=== PATIENT | male | born 1990 | race Caucasian/White ===

== ENCOUNTER 2025-04-16 05:48 | Observation (INO) | payer OTHER, SELFPAY ==
[2025-04-16] VITALS (17 sets, daily range): BP systolic 113–157; BP diastolic 65–98; PULSE 46–79; RESP 16–18; TEMP 36.3–37; O2SAT 93–99; BMI 36.6
--- NOTE | 2025-04-16 05:57 | CT_ITS ---
FINAL REPORT TECHNIQUE: After the administration of intravenous contrast, axial images were obtained through the abdomen and pelvis by computed tomography. The study was performed with techniques to keep radiation dose as low as reasonably achievable, (ALARA). Individual dose reduction techniques using automated exposure control or adjustment of mA and/or kV according to the patient's size were employed. CLINICAL HISTORY: epigastric/RUQ pain COMPARISON: None FINDINGS: Abdomen: The lung bases are clear. There is extensive fatty infiltration of the liver present. The gallbladder is present. The spleen, pancreas, adrenals and kidneys appear unremarkable. The aorta is normal in caliber. There is no free fluid or adenopathy. There are dilated loops of proximal small bowel, which measure up to 3.5 cm in diameter, some of which demonstrate mild mucosal thickening. The distal small bowel is normal in caliber. Pelvis: The appendix is normal in appearance. The urinary bladder is unremarkable. There is no free fluid or adenopathy. IMPRESSION: Dilated loops of proximal small bowel, as described above, some of which demonstrate mild mucosal thickening. This likely is secondary to partial small bowel obstruction, although the exact transition point is not identified. Extensive fatty infiltration of the liver. Reviewed, Interpreted and Dictated by John Esposito MD Transcribed by Marycruz Grant Authenticated and [facility]
--- NOTE | 2025-04-16 06:00 | ED_ITS ---
Discharge Plan Disposition Patient Disposition: Admitted Referrals Follow up/Referrals: Robin Hanson [Primary Care Provider, Medical] - See instructions Clinical Impressions Clinical Impression: Abdominal pain Qualifiers: Abdominal location: upper abdomen, unspecified Qualified Code(s): R10.10 - Upper abdominal pain, unspecified Instructions Patient Instructions: DI for Acute Abdominal Pain Print Language Print Language: Macedonian Discharge ED Provider: Manuel Gay General Adult HPI <Manuel Gay MD - Last Filed: 04/16/25 07:12> General Chief complaint: Abdominal Pain Stated complaint: abd pain radiating to R shoulder Time Seen by Provider: 04/16/25 05:50 History of Present Illness HPI narrative: 34-year-old male with history of hypertension presents for abdominal pain. He reports yesterday around 11 PM. No inciting factors. He reports that it is severe, comes and goes in intensity, primarily right upper quadrant but also radiating to the left side of bilateral flanks as well as the right shoulder. He reports nausea and 1 episode of vomiting. Denies history of surgery. Related Data Allergies Allergy/AdvReac Type Severity Reaction Status Date / Time No Known Allergies Allergy Verified 08/25/24 19:47 PFSH <Manuel Gay MD - Last Filed: 04/16/25 07:12> PFS Disclaimer: The information contained in this section may have been updated after the patient was seen, as this information can be updated by other users. Social History (Updated 04/16/25 @ 07:12 by Manuel Gay MD) Smoking Status: Smoker, status unknown alcohol intake: current current occupational status: employed Travel in the last 8 weeks?: None Have you lived/traveled outside US in past 30 days?: No Contact w/someone who lives/traveled outside US past 30 days?: No Exposure to someone with infectious disease in past 14 days?: No Do you have a fever (greater than 100.4 F or 38 C)?: No Have you tested positive for COVID-19?: No Exposed to someone with COVID-19 in past 14 days?: No Do you have a sore throat?: No Do you have a cough?: No Do you have any weakness?: No Do you have any diarrhea?: No Are you experiencing any unusual bleeding?: No Do you have any muscle aches/pain?: Yes Do you have any abdominal pain?: Yes Are you experiencing loss of taste or smell?: No <Manuel Gay MD - Last Filed: 04/16/25 07:12> ROS Obtained: Yes All systems reviewed & no additional complaints except as documented Physical Exam <Manuel Gay MD - Last Filed: 04/16/25 07:12> General General appearance: alert and in no apparent distress Head Head exam: atraumatic and normocephalic Eye Eye exam: Present normal appearance, PERRL and EOMI ENT ENT exam: Present normal oropharynx and normal external ear exam Neck Neck exam: Present normal inspection and full ROM Chest Chest inspection: Present normal inspection and symmetric chest wall rise; Absent tenderness Respiratory Respiratory exam: Present normal lung sounds bilaterally; Absent respiratory distress Cardiovascular Cardiovascular exam: Present regular rate and normal rhythm Abdominal Exam Abdominal exam: Present soft and tenderness (Right upper quadrant, epigastric); Absent distention or guarding Extremities Exam Extremities exam: Present normal inspection; Absent edema or joint swelling Back Exam Back exam: Present normal inspection; Absent tenderness Neurological Exam Neurological exam: Present alert and oriented X3; Absent motor sensory deficit Psychiatric Psychiatric exam: Present normal affect and normal mood Skin Skin exam: Present warm, dry and normal color Lymphatic Lymphatic Findings: no adenopathy Medical Decision Making <Manuel Gay MD - Last Filed: 04/16/25 07:12> Medical Records Medical records reviewed: Yes I reviewed the patient's medical records. Screening: Per USPSTF and CDC recommendations, given the prevalence of disease in our region, it is our hospital?s policy to screen for HIV and viral Hepatitis for all patients aged 18 and over and those with ongoing risk factors. Simon Inquiry Pt receiving controlled substance: No Simon was queried for this patient: No Vital Signs: 04/16/25 05:57 04/16/25 06:01 04/16/25 06:37 Temperature 97.3 F L Temperature Source Oral Pulse Rate 69 79 Pulse Rate [Left] 74 Respiratory Rate 16 Blood Pressure 130/82 154/84 H Blood Pressure [Right Arm] 157/98 H Blood Pressure Mean Blood Pressure Mean [Right Arm] 117 Blood Pressure Source Blood Pressure Source [Right Arm] Automatic Cuff Blood Pressure Position 02 Sat by Pulse Oximetry 97 95 99 Oxygen Delivery Method Room Air Room Air Room Air 04/16/25 07:00 04/16/25 07:01 04/16/25 07:30 Temperature Temperature Source Pulse Rate 67 55 L 55 L Pulse Rate [Left] Respiratory Rate 16 Blood Pressure 154/84 H 123/69 119/66 Blood Pressure [Right Arm] Blood Pressure Mean 83 Blood Pressure Mean [Right Arm] Blood Pressure Source Automatic Cuff Blood Pressure Source [Right Arm] Blood Pressure Position 02 Sat by Pulse Oximetry 97 95 96 Oxygen Delivery Method Room Air Room Air Room Air 04/16/25 07:54 04/16/25 08:01 04/16/25 08:31 Temperature Temperature Source Pulse Rate 63 58 L 56 L Pulse Rate [Left] Respiratory Rate 17 Blood Pressure 119/66 114/65 116/70 Blood Pressure [Right Arm] Blood Pressure Mean 80 Blood Pressure Mean [Right Arm] Blood Pressure Source Automatic Cuff Blood Pressure Source [Right Arm] Blood Pressure Position Supine 02 Sat by Pulse Oximetry 98 96 97 Oxygen Delivery Method Room Air Room Air Room Air 04/16/25 09:01 Temperature Temperature Source Pulse Rate 56 L Pulse Rate [Left] Respiratory Rate Blood Pressure 114/65 Blood Pressure [Right Arm] Blood Pressure Mean Blood Pressure Mean [Right Arm] Blood Pressure Source Blood Pressure Source [Right Arm] Blood Pressure Position 02 Sat by Pulse Oximetry 94 L Oxygen Delivery Method Room Air Lab Data Lab results reviewed: Yes I reviewed the patient's lab results. Lab Results 04/16/25 06:00: WBC 13.0 H, RBC 5.42, Hgb 15.9, Hct 46.1, MCV 85.1, MCH 29.3, MCHC 34.5, RDW 12.7, Plt Count 235, MPV 11.1 H, Neut % (Auto) 73.9, Lymph % (Auto) 17.8, [place] % (Auto) 6.9, Eos % (Auto) 0.9, Baso % (Auto) 0.3, Neut # (Auto) 9.6 H, Lymph # (Auto) 2.3, [place] # (Auto) 0.9, Eos # (Auto) 0.1, Baso # (Auto) 0.0, Sodium 140, Potassium 4.2, Chloride 101, Carbon Dioxide 30, Anion Gap 13.2, BUN 18, Creatinine 1.00, Estimated Creat Clear 177, Estimated GFR 85, Est GFR ( Amer) 102, Glucose 108 H, Calcium 9.7, Total Bilirubin 1.6 H, A ST 103 H, ALT 150 H, Alkaline Phosphatase 77, Total Protein 8.6 H, Albumin 5.1 H , Globulin 3.5 H, Albumin/Globulin Ratio 1.5, Lipase 65 04/16/25 06:00 04/16/25 06:00 Orders (Tests/Meds): ED MEDICATIONS Discontinued Medications Generic Name Dose Route Start Last Admin Trade Name Freq PRN Reason Stop Dose Admin Acetaminophen 1,000 mg 04/16/25 05:56 04/16/25 06:06 Acetaminophen 500mg Tab PO 04/16/25 05:57 1,000 mg ONCE ONE Administration Belladonna Alkaloids 60 ml 04/16/25 06:00 04/16/25 06:06 Belladonna Alkaloids 60 Ml Ml PO 04/16/25 06:01 60 ml ONCE ONE Administration Hydromorphone HCl 1 mg 04/16/25 06:23 04/16/25 06:28 Hydromorphone 2mg/Ml Syringe IV 04/16/25 06:24 1 mg ONCE ONE Administration Iopamidol 75 ml 04/16/25 06:39 04/16/25 06:40 Iopamidol-370 (76%);100ml Bottle IV 04/16/25 06:40 75 ml ONCE ONE Administration Ketorolac Tromethamine 30 mg 04/16/25 05:56 04/16/25 06:06 Ketorolac 30mg/Ml Vial IV 04/16/25 05:57 30 mg ONCE ONE Administration Morphine Sulfate 4 mg 04/16/25 05:56 04/16/25 06:06 Morphine 4mg/Ml Syringe IV 04/16/25 05:57 4 mg ONCE ONE Administration Ondansetron HCl 4 mg 04/16/25 05:56 04/16/25 06:06 Ondansetron 4mg/2ml Vial IV 04/16/25 05:57 4 mg ONCE ONE Administration Sodium Chloride 10 ml 04/16/25 06:39 04/16/25 06:40 Sodium Chloride 0.9% 10ml Syr (Rad Only) IV 04/16/25 06:40 10 ml ONCE ONE Administration ORDERS Category Date Time Status CT abdomen pelvis w con Stat Cat Scan 04/16/25 05:57 Completed CBC w/Auto Diff [Complete Blood Count Auto Diff] Stat Lab 04/16/25 06:00 Completed CMP [Comprehensive Metabolic Panel] Stat Lab 04/16/25 06:00 Completed Lipase Stat Lab 04/16/25 06:00 Completed Medical Decision Narrative: 34-year-old male with history of hypertension presents for right upper quadrant, epigastric and bilateral flank pain starting last night at 11 PM. History was obtained via interactive discussion with patient. On arrival, patient is [afebrile, hemodynamically stable, satting appropriately, alert, oriented x4, GCS 15], moving all extremities spontaneously. Full physical exam performed and significant for right upper quadrant/epigastric tenderness Differential includes but is not limited to cholecystitis, pancreatitis, choledocholithiasis, cholangitis, gastroenteritis. Patient was given Tylenol Toradol Zofran morphine for symptomatic management and correction of underlying abnormalities. Workup initiated including CBC CMP lipase CT abdomen pelvis with IV contrast. On re-evaluation, patient [remains afebrile, HD stable.] Laboratory workup independently interpreted by me and significant for mild leukocytosis with white count of 13, mildly elevated bilirubin at 1.6, mildly elevated LFTs, normal lipase. Imaging independently interpreted by me and significant for dilated proximal loops of small bowel without an obvious distal obstruction. Gallbladder shows no obvious stones or wall thickening or pericholecystic fluid. See radiology read for full review of final results. Patient care signed out to oncoming physician pending CT read. <Marquis Rodriguez MD - Last Filed: 04/16/25 09:23> Vital Signs: 04/16/25 05:57 04/16/25 06:01 04/16/25 06:37 Temperature 97.3 F L Temperature Source Oral Pulse Rate 69 79 Pulse Rate [Left] 74 Respiratory Rate 16 Blood Pressure 130/82 154/84 H Blood Pressure [Right Arm] 157/98 H Blood Pressure Mean Blood Pressure Mean [Right Arm] 117 Blood Pressure Source Blood Pressure Source [Right Arm] Automatic Cuff Blood Pressure Position 02 Sat by Pulse Oximetry 97 95 99 Oxygen Delivery Method Room Air Room Air Room Air 04/16/25 07:00 04/16/25 07:01 04/16/25 07:30 Temperature Temperature Source Pulse Rate 67 55 L 55 L Pulse Rate [Left] Respiratory Rate 16 Blood Pressure 154/84 H 123/69 119/66 Blood Pressure [Right Arm] Blood Pressure Mean 83 Blood Pressure Mean [Right Arm] Blood Pressure Source Automatic Cuff Blood Pressure Source [Right Arm] Blood Pressure Position 02 Sat by Pulse Oximetry 97 95 96 Oxygen Delivery Method Room Air Room Air Room Air 04/16/25 07:54 04/16/25 08:01 04/16/25 08:31 Temperature Temperature Source Pulse Rate 63 58 L 56 L Pulse Rate [Left] Respiratory Rate 17 Blood Pressure 119/66 114/65 116/70 Blood Pressure [Right Arm] Blood Pressure Mean 80 Blood Pressure Mean [Right Arm] Blood Pressure Source Automatic Cuff Blood Pressure Source [Right Arm] Blood Pressure Position Supine 02 Sat by Pulse Oximetry 98 96 97 Oxygen Delivery Method Room Air Room Air Room Air 04/16/25 09:01 Temperature Temperature Source Pulse Rate 56 L Pulse Rate [Left] Respiratory Rate Blood Pressure 114/65 Blood Pressure [Right Arm] Blood Pressure Mean Blood Pressure Mean [Right Arm] Blood Pressure Source Blood Pressure Source [Right Arm] Blood Pressure Position 02 Sat by Pulse Oximetry 94 L Oxygen Delivery Method Room Air Lab Data Lab Results 04/16/25 06:00: WBC 13.0 H, RBC 5.42, Hgb 15.9, Hct 46.1, MCV 85.1, MCH 29.3, MCHC 34.5, RDW 12.7, Plt Count 235, MPV 11.1 H, Neut % (Auto) 73.9, Lymph % (Auto) 17.8, [place] % (Auto) 6.9, Eos % (Auto) 0.9, Baso % (Auto) 0.3, Neut # (Auto) 9.6 H, Lymph # (Auto) 2.3, [place] # (Auto) 0.9, Eos # (Auto) 0.1, Baso # (Auto) 0.0, Sodium 140, Potassium 4.2, Chloride 101, Carbon Dioxide 30, Anion Gap 13.2, BUN 18, Creatinine 1.00, Estimated Creat Clear 177, Estimated GFR 85, Est GFR ( Amer) 102, Glucose 108 H, Calcium 9.7, Total Bilirubin 1.6 H, A ST 103 H, ALT 150 H, Alkaline Phosphatase 77, Total Protein 8.6 H, Albumin 5.1 H , Globulin 3.5 H, Albumin/Globulin Ratio 1.5, Lipase 65 Orders (Tests/Meds): ED MEDICATIONS Discontinued Medications Generic Name Dose Route Start Last Admin Trade Name Freq PRN Reason Stop Dose Admin Acetaminophen 1,000 mg 04/16/25 05:56 04/16/25 06:06 Acetaminophen 500mg Tab PO 04/16/25 05:57 1,000 mg ONCE ONE Administration Belladonna Alkaloids 60 ml 04/16/25 06:00 04/16/25 06:06 Belladonna Alkaloids 60 Ml Ml PO 04/16/25 06:01 60 ml ONCE ONE Administration Hydromorphone HCl 1 mg 04/16/25 06:23 04/16/25 06:28 Hydromorphone 2mg/Ml Syringe IV 04/16/25 06:24 1 mg ONCE ONE Administration Iopamidol 75 ml 04/16/25 06:39 04/16/25 06:40 Iopamidol-370 (76%);100ml Bottle IV 04/16/25 06:40 75 ml ONCE ONE Administration Ketorolac Tromethamine 30 mg 04/16/25 05:56 04/16/25 06:06 Ketorolac 30mg/Ml Vial IV 04/16/25 05:57 30 mg ONCE ONE Administration Morphine Sulfate 4 mg 04/16/25 05:56 04/16/25 06:06 Morphine 4mg/Ml Syringe IV 04/16/25 05:57 4 mg ONCE ONE Administration Ondansetron HCl 4 mg 04/16/25 05:56 04/16/25 06:06 Ondansetron 4mg/2ml Vial IV 04/16/25 05:57 4 mg ONCE ONE Administration Sodium Chloride 10 ml 04/16/25 06:39 04/16/25 06:40 Sodium Chloride 0.9% 10ml Syr (Rad Only) IV 04/16/25 06:40 10 ml ONCE ONE Administration ORDERS Category Date Time Status CT abdomen pelvis w con Stat Cat Scan 04/16/25 05:57 Completed CBC w/Auto Diff [Complete Blood Count Auto Diff] Stat Lab 04/16/25 06:00 Completed CMP [Comprehensive Metabolic Panel] Stat Lab 04/16/25 06:00 Completed Lipase Stat Lab 04/16/25 06:00 Completed Medical Decision Narrative: 34-year-old male with history of hypertension presents for right upper quadrant, epigastric and bilateral flank pain starting last night at 11 PM. History was obtained via interactive discussion with patient. On arrival, patient is [afebrile, hemodynamically stable, satting appropriately, alert, oriented x4, GCS 15], moving all extremities spontaneously. Full physical exam performed and significant for right upper quadrant/epigastric tenderness Differential includes but is not limited to cholecystitis, pancreatitis, choledocholithiasis, cholangitis, gastroenteritis. Patient was given Tylenol Toradol Zofran morphine for symptomatic management and correction of underlying abnormalities. Workup initiated including CBC CMP lipase CT abdomen pelvis with IV contrast. On re-evaluation, patient [remains afebrile, HD stable.] Laboratory workup independently interpreted by me and significant for mild leukocytosis with white count of 13, mildly elevated bilirubin at 1.6, mildly elevated LFTs, normal lipase. Imaging independently interpreted by me and significant for dilated proximal loops of small bowel without an obvious distal obstruction. Gallbladder shows no obvious stones or wall thickening or pericholecystic fluid. See radiology read for full review of final results. Patient care signed out to oncoming physician pending CT read. Marquis Rodriguez: Upon assumption of care patient is hemodynamically stable. 34-year-old male no past abdominal surgical history epigastric abdominal pain. Hematologic labs reviewed by me mild leukocytosis 13 no critical electrolyte abnormality or JANE. Mild elevated bilirubin and transaminitis without elevated lipase, patient states these are always elevated. CT imaging informally reviewed by me there appears to be decompressed bowel without obvious transition point. CT abdomen pelvis consistent with partial small bowel obstruction without obvious transition point identified with extensive fatty infiltration of the liver which explains his transaminitis that he is aware of. The case discussed with general surgery Dr. Perez regarding management and he agrees that supportive care and observation is warranted. The case was discussed hospital medicine regarding management they will admit the patient their service for continued evaluation at this time. Procedures <Manuel Gay MD - Last Filed: 04/16/25 07:12> Risk/Benefits of Procedure(s) Were Explained: Yes Critical Care <Manuel Gay MD - Last Filed: 04/16/25 07:12> Critical Care Time Critical Care Time: No
[2025-04-16] MEDS: ACETAMINOPHEN 500MG TAB 1000 MG PO (06:06)
[2025-04-16] MEDS: MORPHINE 4MG/ML SYRINGE 4 MG IV (06:06)
[2025-04-16] MEDS: BELLADONNA ALKALOIDS 60 ML ML PO (06:06)
[2025-04-16] MEDS: KETOROLAC 30MG/ML VIAL 30 MG IV (06:06)
[2025-04-16] MEDS: ONDANSETRON 4MG/2ML VIAL 4 MG IV (06:06)
[2025-04-16 06:10] LABS: Basophils % 0.3 % (0.1-2.0); Eosinophils # 0.1 Kmm3 (0.0-0.4); Eosinophils % 0.9 % (0.1-12.0); Hematocrit 46.1 % (42.0-52.0); Hemoglobin 15.9 g/dL (14.1-18.0); Immature Granulocytes # 0.03 10^3uL; Immature Granulocytes % 0.2 %; Lymphocytes # 2.3 K/mm3 (0.7-4.5); Lymphocytes % 17.8 % (10-50); Mean Corpuscular HGB Conc 34.5 g/dL (31.8-35.4); Mean Corpuscular Hemoglobin 29.3 pg (27.0-31.2); Mean Corpuscular Volume 85.1 fl (80-94); Mean Platelet Volume 11.1 fl (7.4-10.4); Monocytes # 0.9 K/mm3 (0.1-1.0); Monocytes % 6.9 % (1.7-9.3); Neutrophils # 9.6 K/mm3 (1.8-7.8); Neutrophils % 73.9 % (37.0-80.0); Nucleated Red Blood Cells # 0 10^3/uL; Nucleated Red Blood Cells % 0 %; Platelet Count 235 K/mm3 (142-424); Red Blood Count 5.42 M/mm3 (4.60-6.20); Red Cell Distribution Width 12.7 % (11.5-17.5)
[2025-04-16] MEDS: HYDROMORPHONE 2MG/ML SYRINGE 1 MG IV (06:28)
[2025-04-16 06:29] LABS: Alanine Aminotransferase 150 U/L (12-78); Albumin Level 5.1 g/dl (3.5-5.0); Albumin/Globulin Ratio 1.5 (1.1-1.8); Alkaline Phosphatase 77 U/L (38-126); Anion Gap 13.2 mEq/L (5-15); Aspartate Amino Transferase 103 U/L (17-59); Bilirubin,Total 1.6 mg/dl (0.2-1.3); Blood Urea Nitrogen 18 mg/dl (9-20); Calcium 9.7 mg/dl (8.4-10.2); Carbon Dioxide 30 mmol/L (22.0-30.0); Chloride 101 mmol/L (98-107); Creatinine Clearance Estimated 177 mL/min (50-200); Estimated Glomerular Filt Rate 85 ml/min (>60); GFR (African American) 102 ML/MIN (>60); Globulin 3.5 g/dL (1.3-3.2); Glucose 108 mg/dl (74-100); Lipase 65 U/L (23-300); Potassium 4.2 mmoL/L (3.5-5.1); Sodium 140 mmol/L (136-145); Total Protein,Serum 8.6 g/dl (6.3-8.2)
[2025-04-16] MEDS: SODIUM CHLORIDE 0.9% 10ML SYR (RAD ONLY) 10 ML IV (06:40)
[2025-04-16] MEDS: IOPAMIDOL-370 (76%);100ML BOTTLE 75 ML IV (06:40)
--- NOTE | 2025-04-16 07:50 | PC.NURSE ---
call made to rad for update on pt scan, trade manager states scan is locked and being read .
--- NOTE | 2025-04-16 07:50 | PC.NURSE ---
Rounded on pt. Pt reports that the pain is under control. pt states he doesn't need anything at this time. Call light in reach. Vital signs stable.
--- NOTE | 2025-04-16 08:03 | PC.NURSE ---
at updating pt about ct scan results
--- NOTE | 2025-04-16 08:09 | PC.NURSE ---
had the sock knitting machine operator page Dr Perez per Dr Rodriguez about this pt
--- NOTE | 2025-04-16 09:24 | PC.NURSE ---
supervisor hospitality [facility] notified of bed admission
--- NOTE | 2025-04-16 09:25 | EXP.HP ---
History of Present Illness *Admission Date: 04/16/25 *Reason for visit:: abdominal pain [facility] Disclaimer: The information contained in this section may have been updated after the patient was seen, as this information can be updated by other users. Social History (Updated 04/16/25 @ 11:26 by Elisa Bejarano RN) Smoking Status: Smoker, status unknown alcohol intake: current current occupational status: employed Travel in the last 8 weeks?: None Have you lived/traveled outside US in past 30 days?: No Contact w/someone who lives/traveled outside US past 30 days?: No Exposure to someone with infectious disease in past 14 days?: No Do you have a fever (greater than 100.4 F or 38 C)?: No Have you tested positive for COVID-19?: No Exposed to someone with COVID-19 in past 14 days?: No Do you have a sore throat?: No Do you have a cough?: No Do you have any weakness?: No Do you have any diarrhea?: No Are you experiencing any unusual bleeding?: No Do you have any muscle aches/pain?: Yes Do you have any abdominal pain?: Yes Are you experiencing loss of taste or smell?: No Meds Home Medications and Allergies Home Medications ?Medication ?Instructions ?Recorded ?Confirmed ?Type alprazolam 1 mg tablet 1 mg PO DAILY PRN Anxiety 04/16/25 04/16/25 History nebivolol 2.5 mg tablet 2.5 mg PO DAILY 04/16/25 04/16/25 History omeprazole 20 mg capsule,delayed 20 mg PO DAILY 04/16/25 04/16/25 History release New Prescriptions to Start Prescriptions: Allergies Allergy/AdvReac Type Severity Reaction Status Date / Time No Known Allergies Allergy Verified 08/25/24 19:47 Exam Data for Last 24 hours Vital signs and Labs for Last 24 Hours: Temp Pulse Resp BP Pulse Ox O2 Del Method 97.3 F L 56 L 17 114/65 94 L Room Air 04/16/25 05:57 04/16/25 09:01 04/16/25 07:54 04/16/25 09:01 04/16/25 09:01 04/16/25 09:01 Laboratory Results - last 24 hr 04/16/25 06:00: WBC 13.0 H, RBC 5.42, Hgb 15.9, Hct 46.1, MCV 85.1, MCH 29.3, MCHC 34.5, RDW 12.7, Plt Count 235, MPV 11.1 H, Neut % (Auto) 73.9, Lymph % (Auto) 17.8, [place] % (Auto) 6.9, Eos % (Auto) 0.9, Baso % (Auto) 0.3, Neut # (Auto) 9.6 H, Lymph # (Auto) 2.3, [place] # (Auto) 0.9, Eos # (Auto) 0.1, Baso # (Auto) 0.0, Sodium 140, Potassium 4.2, Chloride 101, Carbon Dioxide 30, Anion Gap 13.2, BUN 18, Creatinine 1.00, Estimated Creat Clear 177, Estimated GFR 85, Est GFR ( Amer) 102, Glucose 108 H, Calcium 9.7, Total Bilirubin 1.6 H, AST 103 H, ALT 150 H, Alkaline Phosphatase 77, Total Protein 8.6 H, Albumin 5.1 H, Globulin 3.5 H, Albumin/Globulin Ratio 1.5, Lipase 65 I & O for Last 24 hours: Intake & Output 04/13/25 04/14/25 04/15/25 04/16/25 23:59 23:59 23:59 23:59 Weight 122.47 kg Assessment and Plan *Assessment and plan (1) Abdominal pain: Status: Acute Qualifiers: Abdominal location: upper abdomen, unspecified Qualified Code(s): R10.10 - Upper abdominal pain, unspecified Category: Medical Code(s): R10.9 - Unspecified abdominal pain (2) SBO (small bowel obstruction): Status: Acute Category: Medical Code(s): K56.609 - Unspecified intestinal obstruction, unspecified as to partial versus complete obstruction (3) Hypertension: Status: Acute Category: Medical Code(s): I10 - Essential (primary) hypertension (4) Anxiety: Status: Acute Category: Medical Code(s): F41.9 - Anxiety disorder, unspecified (5) Obesity: Status: Acute Category: Medical Code(s): E66.9 - Obesity, unspecified Plan Abdominal pain Partial SBO -CT obtained in the ED, suspicious for partial SBO with gradual transition point. No clear delineation. Having abdominal pain worse in the right lower abdomen. -N.p.o., surgery consulted to assist with management. Continue conservative management at this time. -Zofran 4 mg as needed every 6 hours for nausea -Monitor for improvement in bowel function. If starts passing gas or has a bowel movement, will advance diet -
--- NOTE | 2025-04-16 09:53 | HMH.PHAINT1 ---
Pharmacy Intervention Comments: MEDICATION RECONCILIATION COMPLETED ON PATIENT USING EXTERNAL FILL HISTORY FROM PHARMACY. -JARRETT SANTIAGO, DONOVAND
[2025-04-16 10:22] LABS: HIV Combo NEGATIVE (Negative)
[2025-04-16 10:31] LABS: Hepatitis C Ab Qual. W/ RFX NEGATIVE (Negative)
--- NOTE | 2025-04-16 11:07 | PC.NURSE ---
I called report to Elisa ELY
[2025-04-16] MEDS: LACTATED RINGERS 1000ML 1,000 ML 75 ML IV (11:58)
--- NOTE | 2025-04-16 12:13 | EXP.SURG.CON ---
History of Present Illness *Admission Date: 04/16/25 *Reason for visit:: Partial SBO *History of present illness: Patient is a 34-year-old male from [facility] who is [employer] employee who presented to the emergency department today with symptoms of the right upper quadrant, epigastric, and bilateral flank pain beginning in the late evening of 04/15/2025. He underwent thorough evaluation in the emergency department which revealed mildly elevated bilirubin at 1.6 and mildly elevated transaminases. Apparently he has chronic elevation of liver function test. He underwent CT scan which revealed dilated loops of proximal small bowel with some mild mucosal thickening. It was felt that this was likely secondary to partial small bowel obstruction although no transition point identified. Patient has never had prior abdominal surgery. He has not had any vomiting. He had a couple bowel movements yesterday. Patient does states that he has been trying to lose weight. He has been on weight watchers. He has had significant decrease in caloric intake. He is also been active and completed a 10 mile hike. He has taken some Metamucil to flush his bowels. He has not had any pain for several hours. [facility] Disclaimer: The information contained in this section may have been updated after the patient was seen, as this information can be updated by other users. Social History (Updated 04/16/25 @ 11:26 by Elisa Bejarano RN) Smoking Status: Smoker, status unknown alcohol intake: current current occupational status: employed Travel in the last 8 weeks?: None Have you lived/traveled outside [place] in past 30 days?: No Contact w/someone who lives/traveled outside US past 30 days?: No Exposure to someone with infectious disease in past 14 days?: No Do you have a fever (greater than 100.4 F or 38 C)?: No Have you tested positive for COVID-19?: No Exposed to someone with COVID-19 in past 14 days?: No Do you have a sore throat?: No Do you have a cough?: No Do you have any weakness?: No Do you have any diarrhea?: No Are you experiencing any unusual bleeding?: No Do you have any muscle aches/pain?: Yes Do you have any abdominal pain?: Yes Are you experiencing loss of taste or smell?: No Meds Home Medications and Allergies Home Medications ?Medication ?Instructions ?Recorded ?Confirmed ?Type alprazolam 1 mg tablet 1 mg PO DAILY PRN Anxiety 04/16/25 04/16/25 History nebivolol 2.5 mg tablet 2.5 mg PO DAILY 04/16/25 04/16/25 History omeprazole 20 mg capsule,delayed 20 mg PO DAILY 04/16/25 04/16/25 History release New Prescriptions to Start Prescriptions: Allergies Allergy/AdvReac Type Severity Reaction Status Date / Time No Known Allergies Allergy Verified 08/25/24 19:47 Exam (Inpt) Vital signs and Labs for Last 24 Hours: Temp Pulse Resp BP Pulse Ox O2 Del Method 98.1 F 46 L 17 134/83 96 Room Air 04/16/25 11:31 04/16/25 11:31 04/16/25 11:31 04/16/25 11:31 04/16/25 11:31 04/16/25 11:31 Laboratory Results - last 24 hr 04/16/25 06:00: WBC 13.0 H, RBC 5.42, Hgb 15.9, Hct 46.1, MCV 85.1, MCH 29.3, MCHC 34.5, RDW 12.7, Plt Count 235, MPV 11.1 H, Neut % (Auto) 73.9, Lymph % (Auto) 17.8, [place] % (Auto) 6.9, Eos % (Auto) 0.9, Baso % (Auto) 0.3, Neut # (Auto) 9.6 H, Lymph # (Auto) 2.3, [place] # (Auto) 0.9, Eos # (Auto) 0.1, Baso # (Auto) 0.0, Sodium 140, Potassium 4.2, Chloride 101, Carbon Dioxide 30, Anion Gap 13.2, BUN 18, Creatinine 1.00, Estimated Creat Clear 177, Estimated GFR 85, Est GFR ( Amer) 102, Glucose 108 H, Calcium 9.7, Total Bilirubin 1.6 H, AST 103 H, ALT 150 H, Alkaline Phosphatase 77, Total Protein 8.6 H, Albumin 5.1 H, Globulin 3.5 H, Albumin/Globulin Ratio 1.5, Lipase 65, HCV Ab FREDI w/Rflx PCR Qn Negative, HIV Ag/Ab Combo Qual Negative I & O for Labs for Last 24 Hours: Intake & Output 04/14/25 04/15/25 04/16/25 04/17/25 11:59 11:59 11:59 11:59 Weight 270 lb 6.4 oz Constitutional: no acute distress GI: Present soft; Absent tenderness Results Labs 04/16/25 06:00 04/16/25 06:00 Labs: Laboratory Results - last 24 hr 04/16/25 06:00: WBC 13.0 H, RBC 5.42, Hgb 15.9, Hct 46.1, MCV 85.1, MCH 29.3, MCHC 34.5, RDW 12.7, Plt Count 235, MPV 11.1 H, Neut % (Auto) 73.9, Lymph % (Auto) 17.8, [place] % (Auto) 6.9, Eos % (Auto) 0.9, Baso % (Auto) 0.3, Neut # (Auto) 9.6 H, Lymph # (Auto) 2.3, [place] # (Auto) 0.9, Eos # (Auto) 0.1, Baso # (Auto) 0.0, Sodium 140, Potassium 4.2, Chloride 101, Carbon Dioxide 30, Anion Gap 13.2, BUN 18, Creatinine 1.00, Estimated Creat Clear 177, Estimated GFR 85, Est GFR ( Amer) 102, Glucose 108 H, Calcium 9.7, Total Bilirubin 1.6 H, AST 103 H, ALT 150 H, Alkaline Phosphatase 77, Total Protein 8.6 H, Albumin 5.1 H, Globulin 3.5 H, Albumin/Globulin Ratio 1.5, Lipase 65, HCV Ab FREDI w/Rflx PCR Qn Negative, HIV Ag/Ab Combo Qual Negative Assessment and Plan *Assessment and plan (1) Abdominal pain: Status: Acute Qualifiers: Abdominal location: upper abdomen, unspecified Qualified Code(s): R10.10 - Upper abdominal pain, unspecified Category: Medical Code(s): R10.9 - Unspecified abdominal pain Plan This may be more of reactive bowel irritability from dietary and supplement changes. If this is a partial small bowel obstruction likely low-grade. Seemingly that his symptoms have resolved at this time. I will give him some clear liquids to start with and proceed from there.
--- NOTE | 2025-04-16 17:21 | EXP.HPDC ---
General Admission date:: 04/16/25 Discharge date: 04/16/25 *Admission Date: 04/16/25 *Chief complaint: abdominal pain *History of present illness: Mr. Mcintyre is a 34-year-old male with history of hypertension who presented with right upper quadrant and epigastric pain. Pain began last night prior to coming to the ER. Became intense, felt like a band around his upper abdomen and even radiated to his right shoulder. Had some nausea but no larisa emesis. Workup in the ER with CT of abdomen showed concern for partial bowel obstruction with gradual transition point. Labs relatively unremarkable with mild leukocytosis with white count of 13. Bilirubin 1.6. Otherwise relatively unremarkable and nonactionable. Medicine consulted for admission due to concern for partial small bowel obstruction. On arrival to the floor, patient feeling somewhat better. Still has not passed gas or had a bowel movement however. Surgery consulted to assist with conservative management at this time. Patient n.p.o. [facility] Disclaimer: The information contained in this section may have been updated after the patient was seen, as this information can be updated by other users. Social History Smoking Status: Smoker, status unknown alcohol intake: current current occupational status: employed Travel in the last 8 weeks?: None Have you lived/traveled outside US in past 30 days?: No Contact w/someone who lives/traveled outside US past 30 days?: No Exposure to someone with infectious disease in past 14 days?: No Do you have a fever (greater than 100.4 F or 38 C)?: No Have you tested positive for COVID-19?: No Exposed to someone with COVID-19 in past 14 days?: No Do you have a sore throat?: No Do you have a cough?: No Do you have any weakness?: No Do you have any diarrhea?: No Are you experiencing any unusual bleeding?: No Do you have any muscle aches/pain?: Yes Do you have any abdominal pain?: Yes Are you experiencing loss of taste or smell?: No Other Medical History Have you received the Flu Vaccine for this season: Yes Have you received the Pneumonia Vaccine: No Review of Systems Review of Systems Review of systems (narrative): 14 point review of systems performed, pertinent positives and negatives as per HPI Exam Data for Last 24 hours Vital signs and Labs for Last 24 Hours: Temp Pulse Resp BP Pulse Ox O2 Del Method 98 F 51 L 16 113/67 96 Room Air 04/16/25 16:00 04/16/25 16:00 04/16/25 16:00 04/16/25 16:00 04/16/25 16:00 04/16/25 16:00 Laboratory Results - last 24 hr 04/16/25 06:00: WBC 13.0 H, RBC 5.42, Hgb 15.9, Hct 46.1, MCV 85.1, MCH 29.3, MCHC 34.5, RDW 12.7, Plt Count 235, MPV 11.1 H, Neut % (Auto) 73.9, Lymph % (Auto) 17.8, [place] % (Auto) 6.9, Eos % (Auto) 0.9, Baso % (Auto) 0.3, Neut # (Auto) 9.6 H, Lymph # (Auto) 2.3, [place] # (Auto) 0.9, Eos # (Auto) 0.1, Baso # (Auto) 0.0, Sodium 140, Potassium 4.2, Chloride 101, Carbon Dioxide 30, Anion Gap 13.2, BUN 18, Creatinine 1.00, Estimated Creat Clear 177, Estimated GFR 85, Est GFR ( Amer) 102, Glucose 108 H, Calcium 9.7, Total Bilirubin 1.6 H, AST 103 H, ALT 150 H, Alkaline Phosphatase 77, Total Protein 8.6 H, Albumin 5.1 H, Globulin 3.5 H, Albumin/Globulin Ratio 1.5, Lipase 65, HCV Ab FREDI w/Rflx PCR Qn Negative, HIV Ag/Ab Combo Qual Negative I & O for Last 24 hours: Intake & Output 04/13/25 04/14/25 04/15/25 04/16/25 23:59 23:59 23:59 23:59 Weight 122.651 kg Constitutional Constitutional: no acute distress, obese and cooperative *Routine HEENT Exam Head: Present normocephalic Eye: Present EOMI and PERRL ENT: Present mucous membranes moist *Routine Neck Exam Neck: Present supple; Absent lymphadenopathy *Routine Respiratory Exam Respiratory: Present CTA bilaterally *Routine Cardiovascular Exam Cardiovascular: Present RRR *Routine Abdominal Exam Abdominal: Present soft, normoactive bowel sounds and tenderness (Minimal right lower abdomen); Absent distended or rebound *Routine Rectal Exam Rectal:: deferred *Routine Genitalia Exam Genitalia:: deferred *Routine Extremities Exam Extremities: Absent cyanosis, clubbing or edema *Routine Skin Exam Skin: Present warm; Absent rash *Routine Neurological Exam Neurological: Present alert, oriented X3 and moving all extremities; Absent altered mental status Meds Home Medications and Allergies Home Medications ?Medication ?Instructions ?Recorded ?Confirmed ?Type alprazolam 1 mg tablet 1 mg PO DAILY PRN Anxiety 04/16/25 04/16/25 History nebivolol 2.5 mg tablet 2.5 mg PO DAILY 04/16/25 04/16/25 History omeprazole 20 mg capsule,delayed 20 mg PO DAILY 04/16/25 04/16/25 History release New Prescriptions to Start Prescriptions: Allergies Allergy/AdvReac Type Severity Reaction Status Date / Time No Known Allergies Allergy Verified 08/25/24 19:47 Hospital Course Hospital Course Hospital Course: 84-year-old male admitted for partial small bowel obstruction. Reviewed CT of abdomen, did not have clear transition point but did show gradual transition with suspicious appearing lack of gas. Initiated on IV fluids with LR. Patient felt somewhat better after arriving to the floor. Proceeded to have multiple bowel movements. [place] significantly better thereafter. Advance to clear liquid diet and was able to tolerate with no nausea or vomiting. No recurrence of abdominal pain. After shared discussion, will discharge home with close follow-up with surgery in the next 1 to 2 weeks to consider outpatient eval of gallbladder. Results Data Completed and Pending Labs on day of discharge: Labs from last 24 hours 04/16/25 06:00 WBC 13.0 H RBC 5.42 Hgb 15.9 Hct 46.1 MCV 85.1 MCH 29.3 MCHC 34.5 RDW 12.7 Plt Count 235 MPV 11.1 H Neut % (Auto) 73.9 Lymph % (Auto) 17.8 [place] % (Auto) 6.9 Eos % (Auto) 0.9 Baso % (Auto) 0.3 Neut # (Auto) 9.6 H Lymph # (Auto) 2.3 [place] # (Auto) 0.9 Eos # (Auto) 0.1 Baso # (Auto) 0.0 Sodium 140 Potassium 4.2 Chloride 101 Carbon Dioxide 30 Anion Gap 13.2 BUN 18 Creatinine 1.00 Estimated Creat Clear 177 Estimated GFR 85 Est GFR ( Amer) 102 Glucose 108 H Calcium 9.7 Total Bilirubin 1.6 H AST 103 H ALT 150 H Alkaline Phosphatase 77 Total Protein 8.6 H Albumin 5.1 H Globulin 3.5 H Albumin/Globulin Ratio 1.5 Lipase 65 HCV Ab FREDI w/Rflx PCR Qn Negative HIV Ag/Ab Combo Qual Negative DS: Diagnosis Discharge Diagnosis (1) Abdominal pain: Status: Acute Code(s): R10.9 - Unspecified abdominal pain Qualifiers: Abdominal location: upper abdomen, unspecified Qualified Code(s): R10.10 - Upper abdominal pain, unspecified (2) SBO (small bowel obstruction): Status: Resolved Code(s): K56.609 - Unspecified intestinal obstruction, unspecified as to partial versus complete obstruction (3) Hypertension: Status: Acute Code(s): I10 - Essential (primary) hypertension (4) Anxiety: Status: Acute Code(s): F41.9 - Anxiety disorder, unspecified (5) Obesity: Status: Acute Code(s): E66.9 - Obesity, unspecified Discharge Plan Disposition Patient Disposition: Home, Self-Care Condition: Fair Follow up Plan Follow up with: Rashard Perez MD [Staff Physician, General Surgery] - Enter time for follow up Robin Hanson [Primary Care Provider, Medical] - Enter time for follow up Prescriptions/Medication Reconciliation: Continued omeprazole 20 mg capsule,delayed release(DR/EC) 20 mg PO DAILY Patient Comments: TAKE 1 CAPSULE BY MOUTH ONCE DAILY nebivolol 2.5 mg tablet 2.5 mg PO DAILY Patient Comments: TAKE 1 TABLET BY MOUTH ONCE DAILY alprazolam 1 mg tablet 1 mg PO DAILY PRN (Reason: Anxiety) Patient Comments: TAKE 1 TABLET BY MOUTH ONCE DAILY Problem Reconciliation Problems Reviewed?: Yes Patient Discharge Instructions ACTIVITY: Continue current activity DIET: continue same diet and advance to your usual diet Print Language: Pashto Providers Primary Care Provider: Robin Hanson Admit Provider: Carlos Alberto Hansen Attending Provider: Carlos Alberto Hansen
--- NOTE | 2025-04-20 14:04 | CARE MANAGER ---
Contacted patient related to hospital discharge. He states that he isn't going to follow up with Dr. Perez as he thinks he just had issues with constipation. He is aware of what was recommended. He denies any questions or concerns.
== END 2025-04-16 17:41 | disposition home or self-care (01) ==
LOC: ER 09:15 → 2ND 09:43
PROVIDERS: Admitting Provider Internal Medicine Adolescent Medicine; Emergency Provider Emergency Medicine; PCP Internal Medicine; Visit Provider Internal Medicine Adolescent Medicine
DX: K56.609 Unspecified intestinal obstruction, unspecified as to partial versus complete obstruction (principal); I10 Essential (primary) hypertension; F41.9 Anxiety disorder, unspecified; E66.9 Obesity, unspecified; D72.829 Elevated white blood cell count, unspecified; K76.0 Fatty (change of) liver, not elsewhere classified; Z79.899 Other long term (current) drug therapy; Z68.36 Body mass index [BMI] 36.0-36.9, adult
CPT/HCPCS: 96361; 96374; 96375; 74177; 80053; 83690; 85025; 86803; 87389; 99285; G0378; J1171; J1885; J2270; J2405; J7120; Q9967